=== PATIENT | female | born 1990 | race Caucasian/White ===

== ENCOUNTER 2021-03-19 19:27 | Emergency (ER) | payer OTHER ==
[~2021-03-19 19:27] MED LIST: BENTYL 20MG TAB20 MG PO; REGLAN10 MG PO
== END 2021-03-19 21:28 | disposition home or self-care (01) ==
LOC: ER1 19:27
DX: R10.31 Right lower quadrant pain (principal); Z88.2 Allergy status to sulfonamides
CPT/HCPCS: 99283; Q9967